=== PATIENT | male | born 1950 | race Caucasian/White ===

== ENCOUNTER → 2023-09-22 | Outpatient (CLI) | payer OTHER | END | disposition home or self-care (01) | LOC: RESCLI 12:19 | PROVIDERS: ATTEND Student in an Organized Health Care Education/Training Program | DX: J44.9 Chronic obstructive pulmonary disease, unspecified (principal); E78.5 Hyperlipidemia, unspecified; I48.0 Paroxysmal atrial fibrillation; G47.33 Obstructive sleep apnea (adult) (pediatric); I50.20 Unspecified systolic (congestive) heart failure; F41.9 Anxiety disorder, unspecified; Z79.899 Other long term (current) drug therapy; Z86.711 Personal history of pulmonary embolism ==